=== PATIENT | female | born 1955 | race Caucasian/White ===

== ENCOUNTER 2016-11-19 05:20 | Inpatient (IN) | payer BC ==
[2016-11-15 14:43] LABS: BASOPHILS 1.5 %; BASOPHILS ABSOLUTE 0.11 10/3/uL (0.0-0.16); EOSINOPHILS 11.7 %; EOSINOPHILS ABSOLUTE 0.85 10/3/uL (0.0-0.53); HEMATOCRIT 41.5 % (36.0-48.0); HEMOGLOBIN 14.5 g/dL (12.0-16.0); IMMATURE GRANULOCYTES 0.4 %; IMMATURE GRANULOCYTES ABSOLUTE 0.03 10/3/uL (0.0-0.11); LYMPHOCYTES 30.3 %; LYMPHOCYTES ABSOLUTE 2.21 10/3/uL (0.67-4.30); MANUAL DIFF NO %; MEAN CORPUS HGB CONC 34.9 g/dL (32.0-36.0); MEAN CORPUSCULAR HEMOGLOB 32.8 pg (26.0-34.0); MEAN CORPUSCULAR VOLUME 93.9 fL (80-100); MEAN PLATELET VOLUME 8.7 fL (9.2-13.0); MONOCYTES 11.8 %; MONOCYTES ABSOLUTE 0.86 10/3/uL (0.21-1.20); NEUTROPHILS 44.3 %; NEUTROPHILS ABSOLUTE 3.23 10/3/uL (2.02-8.40); PLATELET COUNT 262 10/3/uL (150-400); RBC DISTRIBUTION WIDTH 12.4 % (12.0-16.0); RED CELL COUNT 4.42 10/6/uL (4.0-5.6); WHITE BLOOD CELLS 7.3 10/3/uL (4.5-10.5)
[2016-11-15 14:48] LABS: INTERNATIONAL NORMAL RATI 1.1 UNITS (-); PROTIME (NOT ORD) 14.1 SEC (12.0-14.5)
[2016-11-15 14:58] LABS: % IRON SAT 18 % (20-50); BUN (BLOOD UREA NITROGEN) 8 MG/DL (6-23); CALCIUM, SERUM 8.8 MG/DL (8.5-10.4); CHLORIDE, SERUM 95 MMOL/L (96-112); CO2 (CARBON DIOXIDE) 28 MMOL/L (24-34); CREATININE 0.67 MG/DL (0.55-1.02); GFR AFRICAN AMERICAN 110 ML/MIN (>=60); GFR NON AFRICAN AMERICAN 95 ML/MIN (>=60); GLUCOSE, SERUM 88 MG/DL (60-99); IRON BINDING CAPACITY 369 MCG/DL (225-410); IRON, SERUM 65 MCG/DL (35-150); POTASSIUM, SERUM 4.2 MMOL/L (3.5-5.3); SGOT(AST) 18 U/L (5-40); SGPT(ALT) 24 U/L (5-65); SODIUM, SERUM 131 MMOL/L (135-148); TOTAL PROTEIN 7.6 G/DL (6.0-8.5)
[2016-11-15 14:59] LABS: A/G RATIO 1.1 (0.7-1.9); ALBUMIN 3.9 G/DL (3.5-5.0); ALKALINE PHOSPHATASE 136 U/L (45-117); GLOBULIN 3.7 G/DL (2.5-4.1); TOTAL BILIRUBIN 0.6 MG/DL (0-1.2)
[2016-11-15 16:53] LABS: ASCORBIC ACID (UR NOT ORDER) NEG (NEG); BILIRUBIN, URINE NEGATIVE (NEG); KETONE, URINE NEGATIVE (NEG); WBC (NOT ORDERED) (RFLEX) 2 (0-5)
[2016-11-15 16:57] LABS: LEUKOCYTE ESTERASE(NOT OR TRACE (NEG)
--- NOTE | ~2016-11-19 | OP ---
Record Of Operation [address] [place]. [address] NAME: YAHIR SPRINGER : 55 STATUS : ADM IN PAT#: [id number] AGE: 61 ADM/REG DATE : 11/19/16 MR#: [id number] REPORT SERV DATE: 11/22/16 DICTATED BY: YARELIS MAYORGA DATE: 11/20/16 REPORT STATUS : Draft TRANSCRIBED BY: MODL DATE: 11/20/16 DATE OF PROCEDURE: 11/19/2016 PREOPERATIVE DIAGNOSIS: 1. Atrial septal defect. 2. Paroxysmal atrial fibrillation. 3. History of syncope. 4. Hypertension. 5. Tobacco abuse. POSTOPERATIVE DIAGNOSIS: 1. Atrial septal defect. 2. Paroxysmal atrial fibrillation. 3. History of syncope. 4. Hypertension. 5. Tobacco abuse. PROCEDURE PERFORMED: 1. Minimally invasive ASD closure through right thoracotomy. 2. Garcia-Maze IV procedure on cardiopulmonary bypass using radiofrequency ablation and cryoablation. 3. Right groin cannulation for cardiopulmonary bypass. 4. Open repair of the right femoral arteriotomy site. 5. Transesophageal echocardiography. SURGEON: Yarelis Mayorga M.D. RETIREMENT SALES CONSULTANT: Dr. Perico Lucia. DIAZO TECHNICIAN: Antony Lucia. ANESTHESIA: General with Dr. Ramirez. COORDINATOR MINING PRODUCTS: Dr. Isma Armenta. PRIMARY CARE: Yasmin Green. INDICATIONS: This 61-year-old female with a previous history of syncope that has been multiple on episodes since 2016. She had a loop recorder implanted shortly after shortly after last episode of syncope and at the time of the evaluation following a syncopal episode, she was found to have atrial fibrillation on her loop recorder. She subsequently underwent a NELSON for cardioversion. She was found to have an atrial septal defect with left- to-right shunting. She was subsequently cardioverted and had been maintained in normal sinus rhythm to her knowledge. She underwent a cardiac catheterization which demonstrated no surgically significant coronary disease. Her ventricular function was preserved with an ejection fraction greater than 50%. We were asked to see the patient for possible closure Record Of [address] [address] NAME: YAHIR SPRINGER : 55 STATUS : ADM IN PAT#: [id number] AGE: 61 ADM/REG DATE : 11/19/16 MR#: [id number] REPORT SERV DATE: 11/22/16 DICTATED BY: YARELIS MAYORGA DATE: 11/20/16 REPORT STATUS : Draft TRANSCRIBED BY: ZAK DATE: 11/20/16 of the ASD device and consideration for Maze procedure. We discussed this operation with the patient and her . After discussing the operations, indication, and risks, they wished to proceed. We discussed possible right thoracotomy approach and they were in agreement with this. FINDINGS AT OPERATION: 1. Cross-clamp 124 minutes. Total pump time 175 minutes. 2. The ASD was a large patent foramen ovale. It is a slit-like ASD and it was the superior limb of the septum that was not completely closed and this was closed in a two- layer fashion with running pledgeted suture of 4-0 Prolene. 3. The Garcia-Maze IV procedure was a standard lesion set performed using combination of the AtriCure radiofrequency and clamp and cryoablation technique. There was no intraoperative testing of the pulmonary venous complexes. The complete lesion set performed can be seen on the operative record with the Garcia Maze IV lesion set checklist sheet. 4. We were able to apply a 35 mm AtriClip at the base of the left atrial appendage and after application of the AtriClip, the heart was distended and no flow into the left atrial appendage was visualized. 5. The right femoral artery was repaired using an open technique. There was a large posterior plaque in the femoral artery and this was left intact. There was good flow down the foot by Doppler at the end of the operation. 6. NELSON at the end of the procedure demonstrated good ventricular function. The ASD was completely closed with no flow across the defect using micro bubbles technique. The left atrial appendage was obliterated on postoperative echo. PATHOLOGIC SPECIMENS: None. DESCRIPTION OF PROCEDURE: The patient was brought to the operating suite where general anesthesia was induced. Airway secured with a dual lumen endotracheal tube. Lines secured by Anesthesia. Garvey catheter was placed. NELSON examination confirmed the presence of the crescent-shaped ASD and flow from left to right. PA pressures were not elevated on echo. Cut down on the right groin was performed for cardiopulmonary bypass. This is a 3-4 cm incision at the inguinal crease. The femoral artery and vein were exposed and pursestring sutures were placed in both structures. Then, a mini right thoracotomy was made, this was about a 6 cm incision placed just anterior to the anterior axillary line and right above the 4th of the intercostal space. This was carried through the subcutaneous tissue and chest wall musculature. The 4th intercostal space was divided and Protractor soft tissue retractor was placed and retracted. Then additional trocar stab wounds were made along the anterior axillary line and up in the axilla for placement of cross-clamp and camera port. Inferior to the largest VATS incision, a small incision was made along the midaxillary line and this was used for chest tube placement and for pump sucker placement during the procedure. Once in the chest, the right lung was deflated and examination demonstrated well visualized right heart and right hilum. The phrenic nerve was clearly visible and we stabled this as Record Of Operation [id number] [place]. [address] NAME: YAHIR SPRINGER : 55 STATUS : ADM IN [facility]#: [id number] AGE: 61 ADM/REG DATE : 11/19/16 MR#: [id number] REPORT SERV DATE: 11/22/16 DICTATED BY: YARELIS MAYORGA DATE: 11/20/16 REPORT STATUS : Draft TRANSCRIBED BY: ZAK DATE: 11/20/16 well away from this during the operation. A single tacking suture was placed in the diaphragm and secured. We then turned our attention towards cardiopulmonary bypass in the right groin. Using a Seldinger technique, a needle was placed in both vessels and guidewire was inserted. A 19- [place] arterial cannula was placed in the right femoral artery and secured and connected to the pump tubing once cleared of air. In a similar technique, the right femoral vein was cannulated with a 24-[place] cannula and this was secured. Heparin was administered by Anesthesia. When all was in readiness, the patient was placed on cardiopulmonary bypass. The pericardium was opened from the SVC down to the inferior vena caval reflection. Tacking sutures were placed in the pericardium. This opening was well away from the phrenic nerve. Then antegrade cardioplegia cannula was placed in the ascending aorta and secured with the pursestring suture. Then, with the heart on bypass and empty, we examined through the transverse sinus, the base of the left atrial appendage. The left atrial appendage was easily visualizable and was small. I felt AtriClip could be applied safely. A 35 mm AtriClip was selected and this was lowered across the base of the left atrial appendage. Occlusion of the AtriClip and then filling the heart was carried out. Examination at this point with NELSON demonstrated no flow into the left atrial appendage through the closed AtriClip. The AtriClip was then closed completely and the delivery device was removed from the chest. The heart was again emptied. Then, the aorta was crossclamped. Initial and only dose of shelter crystalloid solution was administered in antegrade fashion. During this first dose of cardioplegia, the left atriotomy was made. It was apparent on opening the left atrium that there was significant flow across the ASD to the left atrium from the right side. A 4-0 Prolene suture was placed in the ASD to temporarily secure it. This allowed us good visualization of the body of the left atrium and mitral valve. At this point, we began the Maze procedure. Using the cryoprobe, we performed superior and inferior lines and pulmonary vein isolation lines and lined up to the base of the left atrial appendage where the AtriClip had been placed. We then performed a cryolesion down to the mitral annulus in the region of P3. A corresponding lesion was made on the outside of the heart across this coronary sinus at the same tangent. Once the left- sided portion of the Maze procedure had been performed, an LV vent was placed through the opening into the mitral valve. The left atriotomy was then closed in a two-layer fashion with running pledgeted suture of 4-0 Prolene. Near completion of closure, the suture in the ASD was removed. We then turned our attention towards the Maze procedure on the right side and the ASD closure. Vessel occlusives were placed around the SVC and IVC. The inferior vena caval cannula was withdrawn below the junction with the right atrium. The vascular load was secured. The right atrial appendage pursestring suture was placed and then the right atrial lesions around the right atrial appendage was carried out using the AtriCure bipolar clamp. Then, a 28-[place] malleable cannula was placed through the pursestring suture and directed into the SVC. The rundown suture was secured around the cannula in the SVC. Next, a lateral right Record Of [facility] [address] [facility] [place]. [address] NAME: YAHIR SPRINGER : 55 STATUS : ADM IN PAT#: [id number] AGE: 61 ADM/REG DATE : 11/19/16 MR#: [id number] REPORT SERV DATE: 11/22/16 DICTATED BY: YARELIS MAYORGA DATE: 11/20/16 REPORT STATUS : Draft TRANSCRIBED BY: ZAK DATE: 11/20/16 atriotomy incision was made and the transverse incision between the base of the right atrial appendage and the opening in the right atrium was performed with bipolar clamp. Superior and inferior IVC lesions were performed using AtriCure bipolar clamp through this the right lateral atrial incision. Then, finally a tricuspid annular lesion was performed at the 2 o'clock position using the AtriCure cryoprobe. Once we completed the right atrial portion of the Garcia Maze 4 procedure, the AtriCure instrumentation was passed off the field. Then exposure of the right atrial ASD was performed. This demonstrated the crescent-shaped ASD at the top of the limb of the septum. This was then closed in a two-layer fashion with running pledgeted suture of 4-0 Prolene. The entire septum was inspected and appeared to be competent and without any of the perforations. Warming was begun. The right atriotomy was closed in a two-layer fashion with running suture of 6-0 Prolene. The superior vena caval cannula was removed from the right atrial appendage and this pursestring suture was tied. The rundown sutures on the SVC and IVC were released. Then flows were reduced on the pump and the heart was decompressed. De-airing was completed and the aortic cross-clamp was removed. The heart resumed a slow sinus rhythm. Ventilation was begun on the left side and then right side at a later time. When heart demonstrated good contractility, it was allowed to fill and eject. When deairing was completed, the pursestring suture placed in the ascending aorta for the antegrade cardioplegia site was tied. The LV vent placed through the repair side of left atriotomy was then removed and these sutures were tied. The patient was then weaned from cardiopulmonary bypass with minimal inotropic support. The venous cannula from the femoral vein was removed and these pursestring sutures secured and later tied. NELSON examination demonstrated good ventricular function. There was no evidence of residual ASD. Other valvular function appeared to be intact. Protamine was administered by Anesthesia and following a period of hemodynamic stability, the arterial cannula in the right femoral artery was removed. This arteriotomy site was repaired. Vascular clamps placed proximal and distal to the arteriotomy incision. The arteriotomy incision was freshened and then closed using interrupted horizontal mattress sutures of 6-0 Prolene. The patient did have a fairly large posterior plaque. It was soft and this was left intact as the patient had good flow in the leg vessels and dopplerable flow in the feet as it did preoperatively. The patient continued to do well and chest incision and groin incisions were irrigated. Hemostasis was obtained. Then intercostal blocks using the TAP solution were performed. The chest tube was placed through the most inferior thoracoscopic port incision and secured to the chest wall. The intercostal space was reapproximated with #2 Vicryl. The chest wall musculature reapproximated with #1 StrataFix. The subcutaneous tissue was strata fix and the skin closed subcuticular fashion. The patient tolerated the procedure well. There were no complications. Sponge and needle counts were correct. DISPOSITION: The patient was left intubated, sedated, and transported to the Intensive Care Record Of [address] [address] NAME: YAHIR SPRINGER : 55 STATUS : ADM IN [facility]#: [id number] AGE: 61 ADM/REG DATE : 11/19/16 MR#: [id number] REPORT SERV DATE: 11/22/16 DICTATED BY: YARELIS MAYORGA DATE: 11/20/16 REPORT STATUS : Draft TRANSCRIBED BY: ZAK DATE: 11/20/16 unit in stable condition. JOSSELIN/ZAK Yarelis Mayorga M.D. / [id number] CC: Felton Rivera M.D.
--- NOTE | ~2016-11-19 | DS ---
Discharge Summary [facility] [address] [facility] [place]. [address] NAME: YAHIR SPRINGER : 55 STATUS : DIS IN PAT#: [id number] AGE: 61 ADM/REG DATE : 11/19/16 MR#: [id number] REPORT SERV DATE: 12/02/16 DICTATED BY: YARELIS MAYORGA DATE: 12/01/16 REPORT STATUS : Draft TRANSCRIBED BY: ZAK DATE: 12/01/16 Data Collection from hospitalization DISCHARGE DIAGNOSES: 1. Paroxysmal atrial fibrillation-status post maze. 2. Secondary atrial septal defect, status post closure. 3. Hypertension. 4. Cigarette smoking. 5. Chronic obstructive pulmonary disease. CONSULTATIONS: Dr. Donn Lisa. PROCEDURES: Minimally invasive atrial septal defect closure through right thoracotomy, Garcia- maze IV procedure on cardiopulmonary bypass using radiofrequency ablation and cryoablation. Right groin cannulation for cardiopulmonary bypass. Open repair of right femoral arteriotomy site. Transesophageal echocardiography 11/19/2016. DISCHARGE MEDICATIONS: ProAir as instructed, aspirin 81 mg daily, Astelin two sprays nasally twice a day as needed, Coreg 6.25 mg twice a day, Flonase nasal spray two sprays nasally twice a day as needed, Advair Diskus two inhalations daily as needed, hydrochlorothiazide 12.5 mg every morning, Claritin 10 mg every morning, Cozaar 100 mg every morning, Singulair 10 mg every morning, Prilosec 20 mg every morning, Percocet 10/325 one tablet every four hours as needed, Betapace 80 mg every 12 hours, Aldactone 25 mg every morning, Spiriva HandiHaler as instructed, Jantoven 5 mg at bedtime. CONDITION ON DISCHARGE: Stable. DISPOSITION: The patient was discharged home on a regular diet with activities as instructed. She would follow up with Dr. Isma Armenta 12/07/2016. She would follow up with Arvind Orourke 01/20/[address] Yasmin Green 3 to 5 weeks following discharge. She would follow up in the [facility] 11/26/2016. HOSPITAL COURSE: This is a 61-year-old female who has a previous history of syncope. She had a loop recorder implanted shortly after the last episode of syncope, and at that time of the evaluation following a syncopal episode, she was found to have atrial fibrillation on her loop recorder. She subsequently underwent transesophageal echocardiogram for cardioversion. She was found to have atrial septal defect with [id number] shunting. She was subsequently cardioverted and had been maintained in a normal sinus rhythm. She underwent a cardiac catheterization which demonstrated no surgically significant coronary disease. Her ventricular function was preserved with an ejection fraction greater than 50%. Treatment options were discussed, and it was elected to proceed with surgical intervention. She was admitted to the hospital at this time for further evaluation and treatment. Upon admission, she was taken to the operating room where she underwent the above-mentioned procedure. She tolerated this well, and there were no complications. Following this, she was seen by Dr. Donn Lisa. Her hemoglobin A1c was 5.2. She had trace bilateral lower extremity edema. Eliquis was going to be resumed. Routine postop care was being provided. Precedex was being weaned. Blood pressure was stable. On postop day 1, she was up sitting Discharge Summary [address] [address] NAME: YAHIR SPRINGER : 55 STATUS : DIS IN [facility]#: [id number] AGE: 61 ADM/REG DATE : 11/19/16 MR#: [id number] REPORT SERV DATE: 12/02/16 DICTATED BY: YARELIS MAYORGA DATE: 12/01/16 REPORT STATUS : Draft TRANSCRIBED BY: ZAK DATE: 12/01/16 in a chair. She did complain of pain. She was in a normal sinus rhythm. Diuresis was being performed. Beta raghav was increased. Over the next couple of days, pacing wires were removed. She had no edema. Discharge planning was performed. She remained in a sinus rhythm. Eliquis was started on the . Her incisions looked okay. Discharge planning was performed. She had some mild discomfort on 11/23/2016. She complains of some pain at the incision site of her chest. INR level was 1.3. Discharge instructions were given. Due to her improved and stable condition, she was discharged home with the above-stated instructions. Information collected by: Omayra Finnegan I submit the above information as my discharge summary. BRENDAN/ZAK Yarelis Mayorga M.D. / [id number] CC: Yasmin Lisa M.D.
[~2016-11-19 05:20] MED LIST: ADVAIR250 INH; ADVAIR250 PO; ASAB PO; ASTELIN NAS; BETAPACE AF80 MG PO; CLARIT10 PO; COREG12 PO; COREG25 PO; COREG6 PO; COZAAR100 MG PO; ELIQUIS 5 MG TAB5 MG PO; FLONASE NAS; HYDROCHLOROT12.5 MG PO; MILK THISTLE PO; NORCO1 TA1 PO; PRILO PO; PROAIR HFA; PROAIR HFA INH; SINGULAIR1 PO; SPIRIVA; SPIRIVA INH; SPIRO25 PO; ULTRAM50 PO
[2016-11-19 13:58] LABS: BE (BASE EXCESS) -4.3 MEQ/L (0 +/- 2.5); CARBOXYHEMOGLOBIN 1.6 % (0-3); HCO3 (ACTUAL BICARBONATE) 21.2 MEQ/L (23-27); HEMOBLOGIN CONTENT 14.4 G/DL (12-16); INSTRUMENT SERIAL # 11843; METHEMOGLOBIN 0.5 % (0-3); MODE SIMV; O2 CONTENT 20.5 VOL% (18-24); OPERATOR ID 35188; PCO2 (CO2 TENSION) 41 MMHG (35-45); PO2 (O2 TENSION) 349 MMHG (79-93); SAMPLE Arterial; TIDAL VOLUME 550 ML; pH 7.34 (7.37-7.43)
[2016-11-19 14:14] LABS: HEMOGLOBIN 13.2 g/dL (12.0-16.0)
[2016-11-19 14:15] LABS: PLATELET COUNT 117 10/3/uL (150-400)
[2016-11-19 14:21] LABS: INTERNATIONAL NORMAL RATI 1.7 UNITS (-); PARTIAL THROMBO TIME 37.1 SEC (22.5-37.2)
[2016-11-19 14:25] LABS: PROTIME (NOT ORD) 20.1 SEC (12.0-14.5)
[2016-11-19 14:27] LABS: BUN (BLOOD UREA NITROGEN) 10 MG/DL (6-23); CHLORIDE, SERUM 103 MMOL/L (96-112); CO2 (CARBON DIOXIDE) 24 MMOL/L (24-34); CREATININE 0.71 MG/DL (0.55-1.02); GFR AFRICAN AMERICAN 107 ML/MIN (>=60); GFR NON AFRICAN AMERICAN 92 ML/MIN (>=60); SODIUM, SERUM 134 MMOL/L (135-148)
[2016-11-19 14:29] LABS: GLUCOSE, SERUM 115 MG/DL (60-99)
[2016-11-19 14:34] LABS: POTASSIUM, SERUM 4.3 MMOL/L (3.5-5.3)
[2016-11-19 17:43] LABS: ALLENS TEST Pos; BE (BASE EXCESS) -4.8 MEQ/L (0 +/- 2.5); CARBOXYHEMOGLOBIN 1.2 % (0-3); DEVICE NC; HCO3 (ACTUAL BICARBONATE) 20.5 MEQ/L (23-27); HEMOBLOGIN CONTENT 13.1 G/DL (12-16); INSTRUMENT SERIAL # 11843; METHEMOGLOBIN 0.5 % (0-3); OPERATOR ID 35188; PCO2 (CO2 TENSION) 39 MMHG (35-45); PO2 (O2 TENSION) 140 MMHG (79-93); SAMPLE Arterial; pH 7.34 (7.37-7.43)
[2016-11-19 20:22] LABS: HEMOGLOBIN 11.9 g/dL (12.0-16.0)
[2016-11-19 20:32] LABS: CALCIUM, SERUM 7.8 MG/DL (8.5-10.4); CHLORIDE, SERUM 106 MMOL/L (96-112); CO2 (CARBON DIOXIDE) 23 MMOL/L (24-34); CREATININE 0.69 MG/DL (0.55-1.02); GFR AFRICAN AMERICAN 109 ML/MIN (>=60); GFR NON AFRICAN AMERICAN 94 ML/MIN (>=60); GLUCOSE, SERUM 113 MG/DL (60-99); POTASSIUM, SERUM 4.7 MMOL/L (3.5-5.3); SODIUM, SERUM 136 MMOL/L (135-148)
[2016-11-19 20:33] LABS: BUN (BLOOD UREA NITROGEN) 15 MG/DL (6-23)
[2016-11-20 01:29] LABS: BASOPHILS 0.1 %; BASOPHILS ABSOLUTE 0.01 10/3/uL (0.0-0.16); EOSINOPHILS 0.1 %; EOSINOPHILS ABSOLUTE 0.01 10/3/uL (0.0-0.53); HEMATOCRIT 31.9 % (36.0-48.0); HEMOGLOBIN 11.3 g/dL (12.0-16.0); IMMATURE GRANULOCYTES 0.2 %; IMMATURE GRANULOCYTES ABSOLUTE 0.02 10/3/uL (0.0-0.11); LYMPHOCYTES 2.2 %; LYMPHOCYTES ABSOLUTE 0.27 10/3/uL (0.67-4.30); MEAN CORPUS HGB CONC 35.4 g/dL (32.0-36.0); MEAN CORPUSCULAR HEMOGLOB 33.1 pg (26.0-34.0); MEAN CORPUSCULAR VOLUME 93.5 fL (80-100); MEAN PLATELET VOLUME 9.3 fL (9.2-13.0); MONOCYTES 2.4 %; PLATELET COUNT 120 10/3/uL (150-400); RBC DISTRIBUTION WIDTH 12.9 % (12.0-16.0)
[2016-11-20 01:30] LABS: MANUAL DIFF NO %; RED CELL COUNT 3.41 10/6/uL (4.0-5.6); WHITE BLOOD CELLS 12.3 10/3/uL (4.5-10.5)
[2016-11-20 01:37] LABS: INTERNATIONAL NORMAL RATI 1.5 UNITS (-); PROTIME (NOT ORD) 17.5 SEC (12.0-14.5)
[2016-11-20 01:42] LABS: BUN (BLOOD UREA NITROGEN) 17 MG/DL (6-23); CALCIUM, SERUM 7.9 MG/DL (8.5-10.4); CHLORIDE, SERUM 108 MMOL/L (96-112); CO2 (CARBON DIOXIDE) 26 MMOL/L (24-34); CREATININE 0.64 MG/DL (0.55-1.02); GFR AFRICAN AMERICAN 112 ML/MIN (>=60); GFR NON AFRICAN AMERICAN 96 ML/MIN (>=60); GLUCOSE, SERUM 97 MG/DL (60-99); POTASSIUM, SERUM 4.1 MMOL/L (3.5-5.3); SODIUM, SERUM 139 MMOL/L (135-148)
[2016-11-21 05:00] LABS: BASOPHILS 0.1 %; BASOPHILS ABSOLUTE 0.01 10/3/uL (0.0-0.16); EOSINOPHILS 0 %; HEMATOCRIT 31.9 % (36.0-48.0); HEMOGLOBIN 11.1 g/dL (12.0-16.0); IMMATURE GRANULOCYTES 0.3 %; IMMATURE GRANULOCYTES ABSOLUTE 0.04 10/3/uL (0.0-0.11); LYMPHOCYTES 9.3 %; MEAN CORPUS HGB CONC 34.8 g/dL (32.0-36.0); MEAN CORPUSCULAR VOLUME 94.9 fL (80-100); MEAN PLATELET VOLUME 9.6 fL (9.2-13.0); MONOCYTES 7.3 %; MONOCYTES ABSOLUTE 0.86 10/3/uL (0.21-1.20); NEUTROPHILS ABSOLUTE 9.78 10/3/uL (2.02-8.40); PLATELET COUNT 104 10/3/uL (150-400); RBC DISTRIBUTION WIDTH 12.9 % (12.0-16.0); RED CELL COUNT 3.36 10/6/uL (4.0-5.6); WHITE BLOOD CELLS 11.8 10/3/uL (4.5-10.5)
[2016-11-21 05:01] LABS: MANUAL DIFF NO %
[2016-11-21 05:02] LABS: INTERNATIONAL NORMAL RATI 1.3 UNITS (-); PROTIME (NOT ORD) 15.9 SEC (12.0-14.5)
[2016-11-21 05:08] LABS: BUN (BLOOD UREA NITROGEN) 17 MG/DL (6-23); CALCIUM, SERUM 8.2 MG/DL (8.5-10.4); CHLORIDE, SERUM 101 MMOL/L (96-112); CO2 (CARBON DIOXIDE) 25 MMOL/L (24-34); CREATININE 0.72 MG/DL (0.55-1.02); GFR AFRICAN AMERICAN 105 ML/MIN (>=60); GFR NON AFRICAN AMERICAN 90 ML/MIN (>=60); POTASSIUM, SERUM 4.2 MMOL/L (3.5-5.3); SODIUM, SERUM 133 MMOL/L (135-148)
[2016-11-21 05:09] LABS: GLUCOSE, SERUM 151 MG/DL (60-99)
[2016-11-22 05:20] LABS: BASOPHILS 0.1 %; BASOPHILS ABSOLUTE 0.01 10/3/uL (0.0-0.16); EOSINOPHILS 0.2 %; EOSINOPHILS ABSOLUTE 0.02 10/3/uL (0.0-0.53); HEMATOCRIT 32.1 % (36.0-48.0); HEMOGLOBIN 10.9 g/dL (12.0-16.0); IMMATURE GRANULOCYTES 0.3 %; IMMATURE GRANULOCYTES ABSOLUTE 0.04 10/3/uL (0.0-0.11); LYMPHOCYTES 16.8 %; LYMPHOCYTES ABSOLUTE 2.06 10/3/uL (0.67-4.30); MEAN CORPUSCULAR HEMOGLOB 32.6 pg (26.0-34.0); MEAN CORPUSCULAR VOLUME 96.1 fL (80-100); MEAN PLATELET VOLUME 10.4 fL (9.2-13.0); MONOCYTES 9.6 %; MONOCYTES ABSOLUTE 1.18 10/3/uL (0.21-1.20); NEUTROPHILS ABSOLUTE 8.98 10/3/uL (2.02-8.40); PLATELET COUNT 110 10/3/uL (150-400); RBC DISTRIBUTION WIDTH 12.9 % (12.0-16.0); RED CELL COUNT 3.34 10/6/uL (4.0-5.6); WHITE BLOOD CELLS 12.3 10/3/uL (4.5-10.5)
[2016-11-22 05:25] LABS: MANUAL DIFF NO %
[2016-11-22 05:30] LABS: INTERNATIONAL NORMAL RATI 1.2 UNITS (-); PROTIME (NOT ORD) 14.6 SEC (12.0-14.5)
[2016-11-22 05:35] LABS: BUN (BLOOD UREA NITROGEN) 18 MG/DL (6-23); CALCIUM, SERUM 8.6 MG/DL (8.5-10.4); CHLORIDE, SERUM 99 MMOL/L (96-112); CO2 (CARBON DIOXIDE) 24 MMOL/L (24-34); CREATININE 0.63 MG/DL (0.55-1.02); GFR AFRICAN AMERICAN 112 ML/MIN (>=60); GFR NON AFRICAN AMERICAN 97 ML/MIN (>=60); GLUCOSE, SERUM 136 MG/DL (60-99); POTASSIUM, SERUM 4.6 MMOL/L (3.5-5.3); SODIUM, SERUM 131 MMOL/L (135-148)
[2016-11-23 04:52] LABS: INTERNATIONAL NORMAL RATI 1.3 UNITS (-); PROTIME (NOT ORD) 15.8 SEC (12.0-14.5)
[2016-11-23] MEDS ORDERED: PERCOCET 10/3251 TAB PO (09:33)
[2016-11-23] MEDS ORDERED: JANTOVEN5 MG PO (09:34)
== END 2016-11-23 12:25 | disposition home or self-care (01) | DRG 229 ==
LOC: SDC/OF 05:20 → CVICU 09:47 → 5NO 11-20 16:20
PROVIDERS: Internal Medicine Cardiovascular Disease; Nurse Practitioner Family; Thoracic Surgery (Cardiothoracic Vascular Surgery)
PROC: 02Q50ZZ Repair Atrial Septum, Open Approach (ICD-10-PCS; 2016-11-19)
PROC: 04QK0ZZ Repair Right Femoral Artery, Open Approach (ICD-10-PCS; 2016-11-19)
PROC: 5A1221Z Performance of Cardiac Output, Continuous (ICD-10-PCS; 2016-11-19)
PROC: 02L70CK Occlusion of Left Atrial Appendage with Extraluminal Device, Open Approach (ICD-10-PCS; 2016-11-19)
PROC: 5A1221Z Performance of Cardiac Output, Continuous (ICD-10-PCS; 2016-11-19)
PROC: B246ZZ4 Ultrasonography of Right and Left Heart, Transesophageal (ICD-10-PCS; principal; 2016-11-19 07:00)
PROC: 02580ZZ Destruction of Conduction Mechanism, Open Approach (ICD-10-PCS; 2016-11-19 07:00)
DX: I48.0 Paroxysmal atrial fibrillation (principal); Q21.1 Atrial septal defect; I10 Essential (primary) hypertension; F17.210 Nicotine dependence, cigarettes, uncomplicated; J44.9 Chronic obstructive pulmonary disease, unspecified
CPT/HCPCS: 36415; 71010; 71020; 80048; 80053; 81001; 82330; 82803; 82805; 82947; 82962; 83036; 83540; 83550; 83735; 84132; 84295; 85014; 85018; 85025; 85049; 85347; 85610; 85730; 86850; 86900; 86901; 86920; 87641; 93005; 93312; 93320; 93325; 94002; 94640; 94660; 94770; A9270-GY; C1769; C2618; J0690; J1644; J1885; J2150; J2250; J2370; J2440; J2720; J2795; J2930; J3010; J3475; P9045